=== PATIENT | female | born 1940 | race Hispanic/Latino ===

== ENCOUNTER → 2017-04-20 | Outpatient (CLI) | payer OTHER | END | disposition home or self-care (01) | LOC: RAH 09:33 | PROVIDERS: ATTEND Internal Medicine | DX: M19.011 Primary osteoarthritis, right shoulder (principal); M47.892 Other spondylosis, cervical region | CPT/HCPCS: 72040; 73030 ==

== ENCOUNTER → 2017-06-13 | Outpatient (CLI) | payer OTHER | END | disposition home or self-care (01) | LOC: RAH 13:55 | PROVIDERS: ATTEND Internal Medicine | DX: R07.89 Other chest pain (principal) | CPT/HCPCS: 71046 ==

== ENCOUNTER → 2018-09-05 | Outpatient (CLI) | payer OTHER | END | disposition home or self-care (01) | LOC: RAH 09:07 | PROVIDERS: ATTEND Internal Medicine | DX: M17.12 Unilateral primary osteoarthritis, left knee (principal); M85.842 Other specified disorders of bone density and structure, left hand; R22.32 Localized swelling, mass and lump, left upper limb | CPT/HCPCS: 73110; 73562 ==

== ENCOUNTER → 2018-12-15 | Outpatient (CLI) | payer OTHER | END | disposition home or self-care (01) | LOC: RAH 12:36 | PROVIDERS: ATTEND Internal Medicine | DX: M19.041 Primary osteoarthritis, right hand (principal); M19.031 Primary osteoarthritis, right wrist | CPT/HCPCS: 73110; 73130 ==

== ENCOUNTER → 2019-08-08 | Outpatient (CLI) | payer OTHER | END | disposition home or self-care (01) | LOC: RAH 08:35 | PROVIDERS: ATTEND Internal Medicine | DX: R52 Pain, unspecified (principal) | CPT/HCPCS: 73080 ==

== ENCOUNTER 2021-12-28 09:50 | Emergency (ER) | payer OTHER ==
[2021-12-28 09:52] VITALS: BP 152/90
[2021-12-28] MEDS ORDERED: ACET-66 PO (12:29)
[2021-12-28] MEDS ORDERED: ACETAMINOPHEN 325 MG TAB ONE (12:33)
== END 2021-12-28 12:44 | disposition home or self-care (01) ==
LOC: EDH 09:50
DX: R10.31 Right lower quadrant pain (principal); R10.32 Left lower quadrant pain; M54.2 Cervicalgia; M54.50 Low back pain, unspecified; V49.69XA Unspecified car occupant injured in collision with other motor vehicles in traffic accident, initial encounter; Y93.89 Activity, other specified; Y92.413 State road as the place of occurrence of the external cause; Y99.8 Other external cause status
CPT/HCPCS: 72125; 74176

== ENCOUNTER → 2024-12-14 | Outpatient (CLI) | payer OTHER ==
[~2024-12-14] MED LIST: ACET-66 PO
--- NOTE | 2024-12-14 12:24 | HMCIMG ---
FOOT COMP 3+VWS RT REASON: RT FOOT PAIN TECHNIQUE: Pre- views were obtained. FINDINGS: There is no evidence of fracture or dislocation. There is no joint effusion. There is mild hallux valgus deformity of the first ray. The soft tissues appear unremarkable. There is no evidence of a radiopaque foreign body. Is mild osteopenia. IMPRESSION: No acute findings. Hallux valgus deformity of the left first ray Mild osteopenia
--- NOTE | 2024-12-14 12:25 | HMCIMG ---
SHOULDER COMP 2+VWS RT REASON: RT SHOULDER PAIN TECHNIQUE: 3 views were obtained. FINDINGS: There is no evidence of fracture or dislocation. There is osteopenia. There is narrowing of the right glenohumeral joint. There is no joint effusion. The soft tissues appear unremarkable. There is no evidence of a radiopaque foreign body. There is a 0.9 cm separation of the right AC joint. IMPRESSION: No acute findings. 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
== END | disposition home or self-care (01) ==
LOC: RAH 10:38
PROVIDERS: ATTEND Internal Medicine
DX: S43.101A Unspecified dislocation of right acromioclavicular joint, initial encounter (principal); M21.071 Valgus deformity, not elsewhere classified, right ankle; M85.811 Other specified disorders of bone density and structure, right shoulder; M19.011 Primary osteoarthritis, right shoulder; M85.871 Other specified disorders of bone density and structure, right ankle and foot; M20.11 Hallux valgus (acquired), right foot; M79.671 Pain in right foot; M25.511 Pain in right shoulder; X58.XXXA Exposure to other specified factors, initial encounter; Y93.89 Activity, other specified; Y92.89 Other specified places as the place of occurrence of the external cause; Y99.8 Other external cause status
CPT/HCPCS: 73030; 73630